=== PATIENT | female | born 1995 | race African-American/Black ===

== ENCOUNTER 2023-08-13 22:11 | Emergency (ER) | payer MEDICAID, SELFPAY ==
[2023-08-13] MEDS ORDERED: Ibuprofen 200 MG TAB ONE (23:15)
== END 2023-08-13 23:20 | disposition home or self-care (01) ==
LOC: CSHERS 22:11
DX: M79.641 Pain in right hand (principal); M25.541 Pain in joints of right hand; F17.210 Nicotine dependence, cigarettes, uncomplicated; W23.0XXA Caught, crushed, jammed, or pinched between moving objects, initial encounter
CPT/HCPCS: 99283

== ENCOUNTER 2025-06-11 10:42 | Emergency (ER) | payer SELFPAY ==
[~2025-06-11 10:42] MED LIST: Iopamidol 300 61% 100 ML VIAL FS ONE
[2025-06-11] MEDS ORDERED: Ketorolac Tromethamine 30 MG (1 mL) VIAL ONE ×2 (11:47→13:50)
[2025-06-11 11:56] LABS: #Basophils 0.04 10x3/uL (0.0-0.2); #Eosinophils 0.20 10x3/uL (0.0-0.5); #Monocytes 1.01 10x3/uL (0.0-1.1); #Neutrophils 4.70 10x3/uL (1.5-8.4); %Basophils 0.5 % (0.0-2.0); %Eosinophils 2.5 % (0.0-6.0); %Lymphocytes 26.3 % (18.0-47.0); %Monocytes 12.5 % (0.0-10.0); %Neutrophils 58.0 % (40.0-75.0); Hematocrit 35.4 % (34.9-44.5); Hemoglobin 11.9 g/dL (12.0-15.5); Mean Corpuscular Hemoglobin 31.5 pg (27.0-33.0); Mean Corpuscular Volume 93.7 fL (81.6-98.3); Platelet Count 217 10x3/uL (150-450); Red Blood Cell (RBC) Count 3.78 10x6/uL (3.90-5.03); White Blood Cell (WBC) Count 8.10 10x3/uL (3.5-10.5)
[2025-06-11 12:03] LABS: BHCG - Serum Negative (NEGATIVE); Pregs Control Background? CLEAR/WHITE (CLR/WHITE); Pregs Control Bar Appear? YES (CONTROL BAR)
[2025-06-11 12:11] LABS: ALT (SGPT) 9 U/L (Less than 34); AST (SGOT) 12 U/L (11-34); Albumin 3.2 g/dL (3.1-4.5); Alkaline Phosphatase 85 U/L (40-110); Anion Gap 11 mmol/L (10-20); BUN (Urea Nitrogen) 9 mg/dL (7.0-18.7); Bilirubin, Total 0.3 mg/dL (0.3-1.2); Calc. Creatinine Clearance 0 mL/min (70-130); Calcium 8.1 mg/dL (7.8-10.44); Carbon Dioxide 25 mmol/L (22-29); Chloride 109 mmol/L (98-107); Globulin 3.1 g/dL (2.4-3.5); Glucose 83 mg/dL (70-105); Potassium 4.0 mmol/L (3.5-5.1); Sodium 141 mmol/L (136-145)
[2025-06-11] MEDS ORDERED: Acetaminophen 500 MG TAB ONE (13:51)
== END 2025-06-11 14:37 | disposition home or self-care (01) ==
LOC: CSHERS 10:42
DX: K04.7 Periapical abscess without sinus (principal); K08.89 Other specified disorders of teeth and supporting structures; F17.210 Nicotine dependence, cigarettes, uncomplicated
CPT/HCPCS: 36415; 70487; 80053; 84703; 85025; 96365; 96375; 96376; J0295; J1885; Q9967